=== PATIENT | male | born 1990 | race Caucasian/White ===

== ENCOUNTER 2024-08-30 10:32 | Emergency (ER) | payer OTHER ==
[~2024-08-30] VITALS: Ht 167.6 cm; Wt 50.9 kg
[2024-08-30 11:46] LABS: BASO # 0.1 10^3/uL (0.0-0.2); EOS % 0.6 % (0.0-3.0); HEMATOCRIT 39.4 % (42.0-52.0); HEMOGLOBIN 12.7 g/dl (13.5-17.5); LYMPH # 0.3 10^3/uL (1.5-5.0); LYMPH % 6.6 % (24.0-44.0); MEAN CORPUSCULAR HEMOGLOBIN 26.7 pg (27.0-33.0); MEAN CORPUSCULAR HGB CONC 32.2 g/dl (32.0-36.5); MEAN CORPUSCULAR VOLUME 82.9 fl (80.0-96.0); MONO # 0.7 10^3/uL (0.0-0.8); MONO % 13.6 % (2.0-8.0); NEUTROPHILS # 3.8 10^3/uL (1.5-8.5); NEUTROPHILS % 77.8 % (36.0-66.0); PLATELET COUNT, AUTOMATED 471 10^3/uL (150-450); RED BLOOD COUNT 4.75 10^6/uL (4.30-6.10); WHITE BLOOD COUNT 4.8 10^3/uL (4.0-10.0)
[2024-08-30 12:16] LABS: LIPASE 39 U/L (12-53)
[2024-08-30 12:18] LABS: ALBUMIN 2.7 G/DL (3.2-5.2); ALKALINE PHOSPHATASE 73 U/L (46-116); ALT/SGPT 15 U/L (7.0-40); AST/SGOT 12 U/L (<34); BILIRUBIN,DIRECT < 0.1 MG/DL (<0.4); BILIRUBIN,TOTAL < 0.2 MG/DL (0.3-1.2); BLOOD UREA NITROGEN 7 MG/DL (9-23); CARBON DIOXIDE LEVEL 26 MMOL/L (20-31); CHLORIDE LEVEL 105 MMOL/L (98-107); CREATININE FOR GFR 0.83 MG/DL (0.70-1.30); GLOMERULAR FILTRATION RATE > 60.0 (>60); GLUCOSE, FASTING 120 MG/DL (60-100); POTASSIUM SERUM 4.8 MMOL/L (3.5-5.1); SODIUM LEVEL 135 MMOL/L (136-145); TOTAL PROTEIN 6.7 G/DL (5.7-8.2)
[2024-08-30] MEDS: KETOROLAC 30 MG/ML 1ML VIAL IV ONE (13:11)
[2024-08-30] MEDS: ONDANSETRON 4MG 2ML VIAL IV ONE (13:11)
[2024-08-30] MEDS: GASTROGRAFIN SOLUTION 30ML PO SCH (13:31)
[2024-08-30] MEDS ORDERED: ISOVUE-370 76% 100ML VIAL As Ordered ONE (14:19)
[2024-08-30] MEDS ORDERED: MORPHINE 2 MG/ML 1ML VIAL IV ONE (14:40)
[2024-08-30] MEDS: fentaNYL 100 MCG/2 ML INJECTION IV ONE (14:51)
[2024-08-30] MEDS: NS 1,000 ML IV ONE (14:51)
[2024-08-30] MEDS ORDERED: ONDA-282 PO (16:12)
[2024-08-30] MEDS ORDERED: TRAM50TA2 PO (16:12)
[2024-08-30 16:16] VITALS: BP 112/57; TEMP 97.4; O2SAT 100
== END 2024-08-30 16:20 | disposition home or self-care (01) ==
LOC: M ED 10:32
DX: R10.9 Unspecified abdominal pain (principal); R11.10 Vomiting, unspecified; F43.10 Post-traumatic stress disorder, unspecified; F17.290 Nicotine dependence, other tobacco product, uncomplicated; Z88.8 Allergy status to other drugs, medicaments and biological substances; Z79.899 Other long term (current) drug therapy
CPT/HCPCS: 74177; 80048; 80076; 83690; 85025; 85652; 87507; 96361; 96374; 96375; 99284; J1885; J2405; J3010; Q9963; Q9967